=== PATIENT | female | born 1975 | race Caucasian/White ===

== ENCOUNTER 2023-07-13 09:49 | Emergency (ER) | payer BC ==
[~2023-07-13] VITALS: Ht 175.3 cm; Wt 68.2 kg
[2023-07-13 10:59] LABS: Basophils # (auto) 0.1 10 ^3/uL (0-0.2); Basophils % (auto) 0.9 % (0.0-2.0); Eosinophils # (auto) 0.1 10 ^3/uL (0-0.8); Eosinophils % (auto) 1.9 % (0.0-7.0); Hematocrit 41.3 % (36.0-46.0); Hemoglobin 13.9 g/dL (12.2-16.2); Lymphocytes # (auto) 1.6 10 ^3/uL (0.4-5.4); Lymphocytes % (auto) 21.2 % (10.0-50.0); Mean Corpuscular Hemoglobin 29.9 pg (28.0-32.0); Mean Corpuscular Hgb Conc. 33.6 g/dL (32.0-36.0); Mean Corpuscular Volume 88.9 fL (80.0-100.0); Monocytes # (auto) 0.4 10 ^3/uL (0-1.3); Monocytes % (auto) 5.8 % (0.0-12.0); Neutrophils # (auto) 5.5 10 ^3/uL (1.6-8.6); Neutrophils % (auto) 70.2 % (37.0-80.0); Red Blood Cells 4.65 10^6/uL (4.0-5.20); Red Cell Distribution Width 12.1 % (11.8-14.3); White Blood Cell 7.8 10^3/uL (4.4-10.8)
[2023-07-13 13:35] VITALS: BP 103/68; PULSE 79; RESP 18; TEMP 97.6; O2SAT 98
== END 2023-07-13 13:31 | disposition home or self-care (01) ==
LOC: ER 09:49
DX: O20.0 Threatened abortion (principal); R10.2 Pelvic and perineal pain; Z3A.01 Less than 8 weeks gestation of pregnancy; Z98.890 Other specified postprocedural states
CPT/HCPCS: 36415; 76801; 76817; 84702; 85025; 86900; 86901

== ENCOUNTER 2023-08-10 06:51 | Emergency (ER) | payer BC ==
[~2023-08-10] VITALS: Ht 175.3 cm; Wt 71.6 kg
[2023-08-10 07:22] LABS: Basophils # (auto) 0.1 10 ^3/uL (0-0.2); Eosinophils # (auto) 0.3 10 ^3/uL (0-0.8); Eosinophils % (auto) 5.6 % (0.0-7.0); Hematocrit 37.9 % (36.0-46.0); Hemoglobin 13.1 g/dL (12.2-16.2); Lymphocytes # (auto) 1.3 10 ^3/uL (0.4-5.4); Lymphocytes % (auto) 22.1 % (10.0-50.0); Mean Corpuscular Hemoglobin 30.7 pg (28.0-32.0); Mean Corpuscular Hgb Conc. 34.5 g/dL (32.0-36.0); Monocytes # (auto) 0.7 10 ^3/uL (0-1.3); Monocytes % (auto) 12.2 % (0.0-12.0); Neutrophils # (auto) 3.4 10 ^3/uL (1.6-8.6); Neutrophils % (auto) 59.1 % (37.0-80.0); Nucleated Red Blood Cells % 0.2 %; Red Blood Cells 4.25 10^6/uL (4.0-5.20); Red Cell Distribution Width 12.5 % (11.8-14.3); White Blood Cell 5.7 10^3/uL (4.4-10.8)
[2023-08-10 08:55] VITALS: BP 111/77; PULSE 84; RESP 18; O2SAT 98
== END 2023-08-10 08:59 | disposition home or self-care (01) ==
LOC: ER 06:51
DX: O03.9 Complete or unspecified spontaneous abortion without complication (principal); R10.2 Pelvic and perineal pain; Z98.890 Other specified postprocedural states
CPT/HCPCS: 36415; 76856; 84702; 85025

== ENCOUNTER 2023-11-01 16:52 | Inpatient (IN) | payer BC ==
[~2023-11-01] VITALS: Ht 175.3 cm; Wt 71.5 kg
[2023-11-01 19:03] LABS: Urine Bacteria MOD /hpf (None Seen); Urine Blood 1+ /uL (Negative); Urine Clarity Turbid (Clear); Urine Color Colorless (Yellow); Urine Mucus FEW (None Seen); Urine Protein, UAD 1+ (Negative); Urine Specific Gravity 1.011 (1.001-1.035); Urine Urobilinogen Normal (Negative); Urine WBC 560 /hpf (0 - 5); Urine WBC Clumps PRESENT /hpf (None Seen); Urine pH 5.5 (5.0-9.0)
[2023-11-01 19:16] LABS: Basophils # (auto) 0.1 10 ^3/uL (0-0.2); Basophils % (auto) 0.5 % (0.0-2.0); Eosinophils # (auto) 0 10 ^3/uL (0-0.8); Hemoglobin 13.2 g/dL (12.2-16.2); Lymphocytes # (auto) 0.8 10 ^3/uL (0.4-5.4); Mean Corpuscular Hemoglobin 30.7 pg (28.0-32.0); Mean Corpuscular Hgb Conc. 34.7 g/dL (32.0-36.0); Mean Corpuscular Volume 88.6 fL (80.0-100.0); Monocytes # (auto) 0.9 10 ^3/uL (0-1.3); Monocytes % (auto) 8.4 % (0.0-12.0); Neutrophils # (auto) 9.2 10 ^3/uL (1.6-8.6); Neutrophils % (auto) 84.1 % (37.0-80.0); Red Blood Cells 4.29 10^6/uL (4.0-5.20); Red Cell Distribution Width 12.5 % (11.8-14.3)
[2023-11-01 19:27] LABS: Chloride 102 mmol/L (98-107); Potassium 4.1 mmol/L (3.5-5.1); Sodium 139 mmol/L (136-145)
[2023-11-01 19:28] LABS: Anion Gap 12 (5-15); Carbon Dioxide 25 mmol/L (20-30)
[2023-11-01 19:29] LABS: Calcium 9.6 mg/dL (8.7-10.4)
[2023-11-01 19:33] LABS: BUN/Creatinine Ratio 8.4 (10.0-20.0); Blood Urea Nitrogen 7 mg/dL (9-23); Glucose 113 mg/dL (74-106)
[2023-11-01 20:30] VITALS: PULSE 93; RESP 17; O2SAT 97
[2023-11-01] MEDS ORDERED: DOCUSATE SOD 100 MG CAP PO PRN (21:00)
[2023-11-01] MEDS ORDERED: NITROGLYCERIN 0.4 MG SL TAB SL PRN (21:00)
[2023-11-01] MEDS ORDERED: MORPHINE SULFATE INJ 2 MG/ml SYRG IV PRN (21:00)
[2023-11-01] MEDS ORDERED: ACETAMINOPHEN 325 MG TAB PO PRN (21:00)
[2023-11-01] MEDS: ONDANSETRON HCL 4 MG/2 ML VIAL IV ONE (21:04)
[2023-11-01] MEDS: MORPHINE SULFATE 4 MG/ML SYR/VIAL IV ONE (21:04)
[2023-11-01] MEDS: cefTRIAXone 1GM/50ML D5W 50 ML IV ONE (21:05)
[2023-11-01] MEDS: SODIUM CHLORIDE 0.9% 1,000 ML IVB ONE (21:05)
[2023-11-01] MEDS: SODIUM CHLORIDE 0.9% 1,000 ML IV ONE (22:19)
[2023-11-01] MEDS: ONDANSETRON HCL 4 MG/2 ML VIAL IV PRN (23:59)
[2023-11-02] MEDS: MORPHINE SULFATE INJ 2 MG/ml SYRG IV PRN (00:01)
[2023-11-02] MEDS: HYDROcodone-ACET 5/325MG TAB PO PRN (04:40)
[2023-11-02] MEDS: PANTOPRAZOLE 40 MG TAB PO SCH (06:24)
[2023-11-02 06:57] LABS: Basophils # (auto) 0 10 ^3/uL (0-0.2); Basophils % (auto) 0.3 % (0.0-2.0); Eosinophils # (auto) 0 10 ^3/uL (0-0.8); Eosinophils % (auto) 0.1 % (0.0-7.0); Hematocrit 35.1 % (36.0-46.0); Hemoglobin 12.1 g/dL (12.2-16.2); Lymphocytes # (auto) 0.7 10 ^3/uL (0.4-5.4); Lymphocytes % (auto) 6.7 % (10.0-50.0); Mean Corpuscular Hemoglobin 30.6 pg (28.0-32.0); Mean Corpuscular Hgb Conc. 34.6 g/dL (32.0-36.0); Mean Corpuscular Volume 88.5 fL (80.0-100.0); Monocytes # (auto) 1.3 10 ^3/uL (0-1.3); Monocytes % (auto) 12.5 % (0.0-12.0); Neutrophils # (auto) 8.5 10 ^3/uL (1.6-8.6); Neutrophils % (auto) 80.4 % (37.0-80.0); Red Blood Cells 3.96 10^6/uL (4.0-5.20); Red Cell Distribution Width 12.5 % (11.8-14.3); White Blood Cell 10.6 10^3/uL (4.4-10.8)
[2023-11-02 07:45] LABS: Alanine Aminotransferase 34 U/L (7-40); Alkaline Phosphatase 103 U/L (46-116); Anion Gap 11 (5-15); BUN/Creatinine Ratio 8.8 (10.0-20.0); Blood Urea Nitrogen 6 mg/dL (9-23); Calcium 8.8 mg/dL (8.7-10.4); Carbon Dioxide 22 mmol/L (20-30); Chloride 105 mmol/L (98-107); Glucose 108 mg/dL (74-106); Potassium 3.3 mmol/L (3.5-5.1); Sodium 138 mmol/L (136-145)
[2023-11-02 07:46] LABS: Albumin 3.9 g/dL (3.2-4.8); Aspartate Aminotransferase 34 U/L (13-40); Bilirubin, Total 0.7 mg/dL (0.2-1.0)
[2023-11-02 07:47] LABS: Total Protein 6.6 g/dL (5.7-8.2)
[2023-11-02] MEDS: POTASSIUM CHL 20 Meq TABLET PO ONE (08:49)
[2023-11-02] MEDS: cefTRIAXone 1GM/50ML D5W 50 ML IV SCH (09:09)
[2023-11-02 10:00] LABS: Urine Bacteria FEW /hpf (None Seen); Urine Blood 1+ /uL (Negative); Urine Clarity Turbid (Clear); Urine Color Light-Orange (Yellow); Urine Mucus FEW (None Seen); Urine Protein, UAD 1+ (Negative); Urine Specific Gravity 1.012 (1.001-1.035); Urine Urobilinogen Normal (Negative); Urine WBC 812 /hpf (0 - 5); Urine WBC Clumps PRESENT /hpf (None Seen); Urine pH 5.5 (5.0-9.0)
[2023-11-02 13:37] VITALS: PULSE 89; RESP 19; O2SAT 96
[2023-11-02 13:41] VITALS: BP 91/61; PULSE 89; RESP 19; TEMP 98.5; O2SAT 96
[2023-11-02] MEDS ORDERED: ECON1CRE6 TOP (14:07)
[2023-11-02] MEDS: SODIUM CHLORIDE 0.9% 1,000 ML IV SCH (15:01)
[2023-11-02 16:35] VITALS: BP 104/57; PULSE 78; RESP 16; TEMP 98.3; O2SAT 97
[2023-11-02 20:00] VITALS: PULSE 75; RESP 16; O2SAT 94
[2023-11-02 21:00] VITALS: BP 99/60; PULSE 75; RESP 16; TEMP 99.1; O2SAT 94
[2023-11-03 01:00] VITALS: BP 128/68; PULSE 99; RESP 18; TEMP 99.5; O2SAT 100
[2023-11-03 05:00] VITALS: BP 121/74; PULSE 93; RESP 20; TEMP 99.6; O2SAT 98
[2023-11-03 08:00] VITALS: PULSE 75; RESP 16; O2SAT 97
[2023-11-03 09:06] LABS: Basophils # (auto) 0 10 ^3/uL (0-0.2); Basophils % (auto) 0.6 % (0.0-2.0); Eosinophils # (auto) 0.1 10 ^3/uL (0-0.8); Eosinophils % (auto) 0.6 % (0.0-7.0); Hematocrit 34.8 % (36.0-46.0); Hemoglobin 11.8 g/dL (12.2-16.2); Lymphocytes # (auto) 0.9 10 ^3/uL (0.4-5.4); Lymphocytes % (auto) 11.8 % (10.0-50.0); Mean Corpuscular Volume 88.3 fL (80.0-100.0); Monocytes # (auto) 0.9 10 ^3/uL (0-1.3); Neutrophils # (auto) 5.9 10 ^3/uL (1.6-8.6); Nucleated Red Blood Cells % 0.1 %; Red Blood Cells 3.94 10^6/uL (4.0-5.20); Red Cell Distribution Width 12.3 % (11.8-14.3); White Blood Cell 7.8 10^3/uL (4.4-10.8)
[2023-11-03 09:07] VITALS: BP 106/60; PULSE 65; RESP 17; TEMP 98.4; O2SAT 97
[2023-11-03 09:27] LABS: Chloride 105 mmol/L (98-107); Potassium 3.6 mmol/L (3.5-5.1); Sodium 136 mmol/L (136-145)
[2023-11-03 09:28] LABS: Anion Gap 2 (5-15); Calcium 8.8 mg/dL (8.5-10.1); Carbon Dioxide 29 mmol/L (20-30)
[2023-11-03 09:33] LABS: Glucose 136 mg/dL (74-106)
[2023-11-03 09:34] LABS: BUN/Creatinine Ratio 8.8 (10.0-20.0); Blood Urea Nitrogen < 5 mg/dL (9-23)
[2023-11-03] MEDS ORDERED: CEFD300C2 PO ×2 (11:27→15:29)
[2023-11-03 13:14] VITALS: BP 108/61; PULSE 75; RESP 17; TEMP 99.2; O2SAT 98
[2023-11-03 14:24] VITALS: BP 108/61; PULSE 75; RESP 17; TEMP 99.2; O2SAT 98
== END 2023-11-03 15:55 | disposition home or self-care (01) | DRG 690 ==
LOC: ER 16:52 → OVERFLOW 20:56 → WEST WING 11-02 13:31
PROVIDERS: ADMIT Internal Medicine; ATTEND Emergency Medicine
DX: N13.6 Pyonephrosis (principal); M54.9 Dorsalgia, unspecified; N83.202 Unspecified ovarian cyst, left side; Z90.49 Acquired absence of other specified parts of digestive tract
CPT/HCPCS: 36415; 74176; 76830; 76856; 80048; 80053; 81001; 83605; 84702; 85025; 87040; 87081; 87086; G0378; J2405